=== PATIENT | female | born 1955 | race Caucasian/White ===

== ENCOUNTER → 2019-03-13 | Outpatient (CLI) | payer BC, OTHER ==
[~2019-03-13] MED LIST: BARIUM SULFATE 176 GM BTL PO ONE; BARIUM SULFATE 340 GM POWD ONE; ERGO400T9 PO; LEVO88TA42 PO; MULT1CAP41 PO
--- NOTE | 2019-03-13 11:31 | RADIOLOGY IMAGING REPORT ---
FACILITY: [facility] PATIENT NAME: Yesenia Fitch : 1955 MR: [id number] V: [id number] EXAM DATE: ORDERING PHYSICIAN: [facility] TECHNOLOGIST: Location: [facility] [place] Patient: Yesenia Fitch : 1955 Visit/Account:[id number] Date of Sevice: 03/13/2019 Exam type: ESOPHAGRAM History: Dysphasia Comparison: None. 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 A 12 mm barium tablet passed freely into the s tomach. A mild amount of gastroesophageal reflux was observed. The dose area product was 244.54 marizol ro-[place] per meter squared IMPRESSION: 1. Minimal narrowing at the lower esophageal sphincter. Mild amount of gastroesophageal reflux was observed. Report Dictated By: Linda Conroy MD at 03/13/2019 11:16 AM Report E-Signed By: Linda Conroy MD at 03/13/2019 11:22 AM WSN:[id number]
== END ==
LOC: RAD 04:26
PROVIDERS: ATTEND Internal Medicine Gastroenterology
DX: K21.9 Gastro-esophageal reflux disease without esophagitis (principal); R13.19 Other dysphagia
CPT/HCPCS: 74220